=== PATIENT | female | born 1975 | race Caucasian/White ===

== ENCOUNTER → 2019-09-24 | Outpatient (CLI) | payer OTHER ==
[~2019-09-24] MED LIST: ASPI-630 PO; ATOR40TA59 PO; IOHEXOL 350 MG/ML 100 ML VIAL. IV ONE; LISI2.5T PO; METO25TA4 PO
[2019-09-24 08:37] LABS: CALCIUM 8.3 mg/dL (8.5-10.1); CREATININE 0.9 mg/dL (0.6-1.0); GFR 68.3; POTASSIUM 4.2 mmol/L (3.5-5.1)
--- NOTE | 2019-09-24 13:36 | RAD ---
CT ANGIOGRAPHY HEAD AND NECK History:Reason: POSS ANEURYSM, HX OF CORONARY ARTERY DISSECTION / Spl. Instructions: / History: Technique: After bolus of intravenous contrast, volumetric CT data acquisition was acquired of the head and neck. Multiplanar reconstruction images to include MIP and 3-D reconstruction images are submitted. Exposure: One or more of the following individualized dose reduction techniques were utilized for this examination: 1. Automated exposure control 2. Adjustment of the mA and/or kV according to patient size 3. Use of iterative reconstruction technique. Comparison: None Any determination of stenosis is based on NASCET criteria. Head CTA: ICA: No stenosis, occlusion or aneurysm. MCA: No stenosis, occlusion or aneurysm. ROXANNE: No stenosis, occlusion or aneurysm. [employer]ER: No stenosis, occlusion or aneurysm. Basilar artery: No stenosis, occlusion or aneurysm. Distal vertebral arteries: No stenosis, occlusion or aneurysm. Minimal right inferior maxillary sinus mucosal thickening. CT angiogram neck: Aortic arch: Conventional arch anatomy. Common carotid arteries: No stenosis, occlusion or dissection. Internal carotid arteries: No stenosis, occlusion or dissection. External carotid arteries: Patent Vertebral arteries: No stenosis, occlusion or dissection. Imaged lung apices are unremarkable. Soft tissues appear normal. Bones: Multilevel spondylosis most prominent C5-C6. Impression: 1. No arterial stenosis, occlusion or aneurysm within the head or neck. Electronically signed by: Jose D Maya DO (09/24/2019 1:33 PM) [facility]
--- NOTE | 2019-09-24 13:44 | RAD ---
CT ANGIO CHEST ABD PELVIS History: History of coronary artery dissection. Possible aneurysm. Technique: CT angiogram chest, abdomen and pelvis was performed without and with intravenous contrast. Coronal and sagittal reconstructions were performed. 3-D reconstructions were performed. Exposure: One or more of the following individualized dose reduction techniques were utilized for this examination: 1. Automated exposure control 2. Adjustment of the mA and/or kV according to patient size 3. Use of iterative reconstruction technique. Comparison: None Findings: Chest: No evidence of aortic aneurysm or dissection. Left anterior descending artery stent noted. No pathologic lymphadenopathy within the chest. No consolidation or pleural effusion. 4 mm left lower lobe pleural-based nodule (series 9 image 150). Abdomen and pelvis: The liver, adrenal glands, pancreas and gallbladder are unremarkable. No biliary ductal dilatation. Prior splenectomy. Small splenule noted within the left upper abdomen. Normal appearance the kidneys. No hydronephrosis. Decompressed urinary bladder. Mild colonic diverticulosis. Normal appendix. No evidence of bowel obstruction. No pathologic lymphadenopathy. No ascites. No aortic aneurysm or dissection. Patent celiac, superior mesenteric, and inferior mesenteric arteries. Patent renal arteries. Patent common, internal and external iliac arteries. Patent common femoral arteries. Patent proximal deep and superficial femoral arteries. Bones: No pathologic osseous lesions. Impression: 1. No aortic aneurysm or dissection. 2. Small left lower lobe pulmonary nodule. Recommend one-year follow-up if high risk. Electronically signed by: Jose D Maya DO (09/24/2019 1:42 PM) [facility]
== END | disposition home or self-care (01) ==
LOC: CT 07:47
PROVIDERS: ATTEND Internal Medicine Cardiovascular Disease
DX: I25.10 Atherosclerotic heart disease of native coronary artery without angina pectoris (principal); I25.42 Coronary artery dissection; R91.1 Solitary pulmonary nodule; M47.892 Other spondylosis, cervical region
CPT/HCPCS: 36415; 70496; 70498; 71275; 74174; 80048; Q9967

== ENCOUNTER 2019-11-30 11:02 | Observation (INO) | payer OTHER ==
[~2019-11-30] VITALS: Ht 157.5 cm; Wt 89.9 kg
[2019-11-30 11:29] LABS: BASO # 0.1 x10^3/uL (0.0-0.2); BASO % 1 % (0-3); EOS # 0.2 x10^3/uL (0.0-0.7); EOS % 3 % (0-3); HEMATOCRIT 44.9 % (36.0-47.0); LYMPH # 2.7 x10^3/uL (1.0-4.8); LYMPH % 31 % (24-48); MEAN CORPUSCULAR HEMOGLOBIN 30 pg (25-35); MEAN CORPUSCULAR HGB CONC 33 g/dL (31-37); MEAN CORPUSCULAR VOLUME 90 fL (79-100); MONO # 0.9 x10^3/uL (0.0-1.1); MONO % 10 % (0-9); NEUT # 4.9 x10^3uL (1.8-7.7); NEUT % 56 % (31-73); PLATELET COUNT 210 x10^3/uL (140-400); RED BLOOD COUNT 5.02 x10^6/uL (3.50-5.40); WHITE BLOOD COUNT 8.7 x10^3/uL (4.0-11.0)
--- NOTE | 2019-11-30 11:34 | PHYS DOC ---
Past History Past Medical History: High Cholesterol, AR, Other Additional Past Medical Histor: spontaneous coronary artery dissection Past Surgical History: Hysterectomy Additional Past Surgical Histo: stent x1 Alcohol Use: Occasionally General Adult EDM: Chief Complaint: CHEST PAIN HPI: HPI: The history was obtained from the patient. Patient is a 44-year-old female with PMH spontaneous coronary artery dissection who presents with a chief complaint of chest pain. Patient states she has had constant chest pain over the past 4 days. States the pain is a chest heaviness. She states nothing seems to alleviate or exacerbate her symptoms including exertion. She denies any shortness of breath. She does note some associated lightheadedness and nausea without vomiting. She states that she does take lisinopril, metoprolol, and a statin daily for preventative measures. She states that her blood pressure typically runs low and she thought was causing her lightheadedness. She denies any syncope. She denies any back pain. States the pain feels similar to when she had her coronary artery dissection however it is significantly less severe in nature. Denies history of blood clot in legs or lungs. Denies headache. Did take an aspirin prior to arrival. No other complaints Review of Systems: Review of Systems: Constitutional: Denies fever or chills Eyes: Denies change in visual acuity HENT: Denies nasal congestion or sore throat Respiratory: Denies cough or shortness of breath Cardiovascular: Positive for chest pain GI: D positive for nausea : Denies dysuria Musculoskeletal: Denies back pain or joint pain Integument: Denies rash Neurologic: Denies headache, focal weakness or sensory changes Endocrine: Denies polyuria or polydipsia Lymphatic: Denies swollen glands Psychiatric: Denies depression or anxiety Heart Score: Risk Factors: Risk Factors: DM, Current or recent (<one month) smoker, HTN, HLP, family history of CAD, obesity. Risk Scores: Score 0 - 3: 2.5% MACE over next 6 weeks - Discharge Home Score 4 - 6: 20.3% MACE over next 6 weeks - Admit for Clinical Observation Score 7 - 10: 72.7% MACE over next 6 weeks - Early Invasive Strategies Allergies: Allergies: Allergies Coded Allergies Type Severity Reaction Last Updated Verified mannitol Allergy Mild 09/24/19 Yes morphine Allergy Unknown 11/30/19 Yes Physical Exam: PE: Constitutional: Well developed, well nourished, no acute distress, non-toxic appearance. [] HENT: Normocephalic, atraumatic, bilateral external ears normal, oropharynx moist, no oral exudates, nose normal. [] Eyes: PERRLA, EOMI, conjunctiva normal, no discharge. [] Neck: Normal range of motion, no tenderness, supple, no stridor. [] Cardiovascular:Heart rate regular rhythm, no murmur [] Lungs & Thorax: Bilateral breath sounds clear to auscultation [] Abdomen: Bowel sounds normal, soft, no tenderness, no masses, no pulsatile masses. [] Skin: Warm, dry, no erythema, no rash. [] Back: No tenderness, no CVA tenderness. [] Extremities: No tenderness, no cyanosis, no clubbing, ROM intact, no edema. [] Neurologic: Alert and oriented X 3, normal motor function, normal sensory function, no focal deficits noted. [] Psychologic: Affect normal, judgement normal, mood normal. [] Current Patient Data: Labs: Laboratory Tests Test 11/30/19 11:12 White Blood Count 8.7 x10^3/uL (4.0-11.0) Red Blood Count 5.02 x10^6/uL (3.50-5.40) Hemoglobin 15.0 g/dL (12.0-15.5) Hematocrit 44.9 % (36.0-47.0) Mean Corpuscular Volume 90 fL (79-100) Mean Corpuscular Hemoglobin 30 pg (25-35) Mean Corpuscular Hemoglobin Concent 33 g/dL (31-37) Red Cell Distribution Width 14.0 % (11.5-14.5) Platelet Count 210 x10^3/uL (140-400) Neutrophils (%) (Auto) 56 % (31-73) Lymphocytes (%) (Auto) 31 % (24-48) Monocytes (%) (Auto) 10 % (0-9) H Eosinophils (%) (Auto) 3 % (0-3) Basophils (%) (Auto) 1 % (0-3) Neutrophils # (Auto) 4.9 x10^3uL (1.8-7.7) Lymphocytes # (Auto) 2.7 x10^3/uL (1.0-4.8) Monocytes # (Auto) 0.9 x10^3/uL (0.0-1.1) Eosinophils # (Auto) 0.2 x10^3/uL (0.0-0.7) Basophils # (Auto) 0.1 x10^3/uL (0.0-0.2) Vital Signs: Vital Signs Date Time Temp Pulse Resp B/P (MAP) Pulse Ox O2 Delivery O2 Flow Rate FiO2 11/30/19 11:04 63 18 125/67 (86) 98 Room Air EKG: EKG: EKG consistent with normal sinus rhythm. Ventricular rate of 61 bpm. Left axis noted. Flipped T waves noted in lead III. No acute ST segment elevation appreciated. No previous EKG for comparison. Overall abnormal EKG. [] Radiology/Procedures: Radiology/Procedures: [] Course & Med Decision Making: Course & Med Decision Making Pertinent Labs and Imaging studies reviewed. (See chart for details) Patient is a 44-year-old female who presents with chief complaint of chest pain. Extensive chart he was performed. Patient does have a history of spontaneous coronary artery dissection requiring LAD stenting approximately 1 year ago. She even tells her that she went into cardiac arrest temporarily. EKG today shows nonspecific T wave inversions. No acute ischemia. Troponin negative. She states that her symptoms are much better than when she previously presented for the coronary artery dissection. I did discuss the case with Dr. Morrissey. He did feel the patient is appropriate for hospitalization at [facility]. Patient's pain was well controlled. She did take aspirin prior to arrival. Signout given to hospitalist. Otilia Disclaimer: Otilia Disclaimer: This electronic medical record was generated, in whole or in part, using a voice recognition dictation system. Departure Departure: Impression: Primary Impression: Chest pain of uncertain etiology Additional Impressions: Spontaneous dissection of coronary artery Abnormal EKG Disposition: ADMITTED INPATIENT Condition: STABLE Referrals: YAQUELIN TANNER MD (PCP) Justification of Admission: Justification of Admission: Justification of Admission Dx: Yes Angina: Cresendo Worsening of Sym JHOAN PENALOZA DO Nov 30, 2019 11:34
[2019-11-30 11:39] LABS: CALCIUM 8.6 mg/dL (8.5-10.1); CREATININE 0.9 mg/dL (0.6-1.0); GFR 68.3
[2019-11-30 11:41] LABS: PREG TEST PT QUAL NEGATIVE (NEG)
[2019-11-30 11:45] LABS: ALBUMIN 3.5 g/dL (3.4-5.0); DIRECT BILIRUBIN 0.1 mg/dL (0.0-0.2); TOTAL BILIRUBIN 0.5 mg/dL (0.2-1.0); TOTAL PROTEIN 7.6 g/dL (6.4-8.2)
[2019-11-30] MEDS ORDERED: NITROGLYCERIN SUBLINGUAL 0.4 MG BOTTLE OF 25. SL PRN (11:45)
--- NOTE | 2019-11-30 11:46 | RAD ---
Single view chest dated 11/30/2019: No comparison available. Clinical Indication: Chest pain. Findings: Single upright portable exam of the chest was performed. Heart size and mediastinal contours are within normal limits given technique. The lungs are clear without evidence of focal consolidation. Vascular interstitium is within normal limits. Impression:: Negative portable chest. Electronically signed by: Chaz Platt MD (11/30/2019 11:44 AM) [id number]
[2019-11-30] MEDS ORDERED: IV NORMAL SALINE 1,000ML 1,000 ML IV ONE (12:15)
[2019-11-30] MEDS ORDERED: HYDROmorphone PF 1 MG/ML DISP.SYRIN IV ONE (13:20)
[2019-11-30] MEDS ORDERED: ONDANSETRON PF 4 MG/2 ML VIAL. IVP PRN ×2 (13:30→15:45)
[2019-11-30] MEDS ORDERED: HYDROmorphone PF 1 MG/ML DISP.SYRIN IV PRN (13:30)
[2019-11-30] MEDS ORDERED: MAG HYDROX/AL HYDROX/SIMETH 30 ML ORAL.SUSP PO ONE (14:45)
[2019-11-30] MEDS ORDERED: FAMOTIDINE 20 MG TABLET PO ONE (14:45)
[2019-11-30] MEDS ORDERED: ONDANSETRON ODT 4 MG TAB.RAPDIS PO ONE (14:45)
--- NOTE | 2019-11-30 15:00 | NUR ---
The patient, RUBY BRICEÑO, 44 y/o, F admitted by CRISSY CUNNINGHAM MD, was given written information regarding hospital policies, unit procedures and contact persons, medications verified with patient. Pt verbalized understanding of all information given. Pt wheeled to room [facility] in [facility] by EMS and ED staff. Valuables were checked and kept in pt room. Pt presented to ED with complaints of CP and vertigo since . CP is constant and rated a 4/10. pt received 1 nitro, 1L NS, and dilaudid in ER before admission. Pt became nauseous and was given zofran before arrival to this unit. pt states the nitro and dilaudid did not help with her CP but only made her nauseous. Will continue to monitor.
[2019-11-30 15:27] VITALS: BP 105/68
[2019-11-30] MEDS ORDERED: ACETAMINOPHEN 325 MG TABLET PO PRN (15:45)
[2019-11-30] MEDS ORDERED: ASPI-630 PO (16:11)
[2019-11-30] MEDS ORDERED: LISI2.5T PO (16:11)
[2019-11-30] MEDS ORDERED: ATOR40TA59 PO (16:11)
[2019-11-30] MEDS ORDERED: METO25TA4 PO (16:11)
--- NOTE | 2019-11-30 16:15 | NUR ---
Pt still complaining of vertigo/dizziness while lying supine in bed and watching TV. Contacted Dr. Comer for medication. Ordered Meclizine 25mg PO Q8hrs.
--- NOTE | 2019-11-30 16:27 | NUR ---
Called in consult for Cardiology with Dr. Morrissey.
[2019-11-30] MEDS: MECLIZINE 12.5 MG TABLET. PO SCH ×2 (16:48→22:56)
[2019-11-30 19:00] VITALS: BP 104/66
[2019-11-30] MEDS: METOPROLOL TART IMMED RELEASE 25 MG TABLET PO SCH (21:50)
[2019-11-30 23:03] VITALS: BP 91/54
[2019-12-01] MEDS: MECLIZINE 12.5 MG TABLET. PO SCH (05:45)
[2019-12-01 05:59] LABS: BASO # 0.2 x10^3/uL (0.0-0.2); BASO % 2 % (0-3); EOS # 0.2 x10^3/uL (0.0-0.7); EOS % 2 % (0-3); HEMATOCRIT 40.6 % (36.0-47.0); HEMOGLOBIN 13.6 g/dL (12.0-15.5); LYMPH # 3.2 x10^3/uL (1.0-4.8); LYMPH % 30 % (24-48); MEAN CORPUSCULAR HEMOGLOBIN 30 pg (25-35); MEAN CORPUSCULAR HGB CONC 34 g/dL (31-37); MEAN CORPUSCULAR VOLUME 89 fL (79-100); MONO # 1.1 x10^3/uL (0.0-1.1); MONO % 11 % (0-9); NEUT # 5.9 x10^3uL (1.8-7.7); NEUT % 56 % (31-73); PLATELET COUNT 212 x10^3/uL (140-400); RED BLOOD COUNT 4.58 x10^6/uL (3.50-5.40); RED CELL DISTRIBUTION WIDTH 14.2 % (11.5-14.5); WHITE BLOOD COUNT 10.7 x10^3/uL (4.0-11.0)
[2019-12-01 06:07] LABS: GFR 60.5; POTASSIUM 4.1 mmol/L (3.5-5.1)
[2019-12-01 06:22] VITALS: BP 100/66
--- NOTE | 2019-12-01 07:42 | PDOC2 ---
MELISSA MARROQUIN LAST PUTTER AWAY 12/01/19 0742: CARDIAC CONSULT DATE OF CONSULT DOS: DATE: 12/01/19 TIME: 07:40 REASON FOR CONSULT Reason for Consult CP with h/o spontaneous coronary artery dissection REFERRING PHYSICIAN Referring Physician Dr. Be SOURCE Source: Chart review, Patient HPI History of Present Illness This is a 44 yo female, with h/o spontaneous coronary artery dissection, who presented secondary to chest pain and dizziness. Reports dizziness began evening. That following day, developed itching, stretching pain in her central chest. No associated diaphoresis, shortness of breath, or palpitations. Dizziness persisted into the weekend. Chest pain, was initially intermittent, but then became more constant so she came to the ED for further evaluation and treatment. Patient reports pain to be different from what she previously experienced with SCAD. Follows with Dr. Lal in clinic. Has outpatient echo scheduled in February. PAST MEDICAL HISTORY Past Medical History Cardiovascular: CAD (coronary dissection), CHF (ICM), MT, Other (Vfib arrest) Pulmonary: No pertinent hx CENTRAL NERVOUS SYSTEM: Other (No pertinent history) GI: No pertinent hx Heme/Onc: No pertinent hx Hepatobiliary: No pertinent hx Psych: No pertinent hx Musculoskeletal: Other (None) Infectious disease: No pertinent hx ENT: No pertinent hx Renal/: No pertinent hx Endocrine: No pertinent hx Dermatology: No pertinent hx PAST SURGICAL HISTORY Past Surgical History Hysterectomy, Other (PCI) FAMILY HISTORY Family History: Coronary Artery Disease (father ) SOCIAL HISTORY Social History Smoke: No ALCOHOL: none Drugs: None Lives: with Family CURRENT MEDICATIONS Current Medications Current Medications Nitroglycerin (Nitrostat) 0.4 mg PRN Q5MIN PRN SL CHEST PAIN Last administered on 11/30/19at 12:09; Start 11/30/19 at 11:45 Sodium Chloride 1,000 ml @ 1,000 mls/hr 1X ONCE IV Last administered on 11/30/19at 12:12; Start 11/30/19 at 12:15; Stop 11/30/19 at 13:14; Status DC Hydromorphone HCl (Dilaudid) 0.5 mg 1X ONCE IV Last administered on 11/30/19at 14:04; Start 11/30/19 at 13:20; Stop 11/30/19 at 13:21; Status DC Ondansetron HCl (Zofran) 4 mg PRN Q4HRS PRN IVP NAUSEA/VOMITING Last administered on 11/30/19at 14:44; Start 11/30/19 at 13:30; Stop 12/01/19 at 13:29 Hydromorphone HCl (Dilaudid) 0.5 mg PRN Q2HR PRN IV PAIN; Start 11/30/19 at 13:30; Stop 12/01/19 at 13:29 Ondansetron HCl (Zofran Odt) 4 mg 1X ONCE PO Last administered on 11/30/19at 16:48; Start 11/30/19 at 14:45; Stop 11/30/19 at 14:47; Status DC Famotidine (Pepcid) 20 mg 1X ONCE PO Last administered on 11/30/19at 16:48; Start 11/30/19 at 14:45; Stop 11/30/19 at 14:47; Status DC Al Hydroxide/Mg Hydroxide (Mylanta Plus Xs) 30 ml 1X ONCE PO Last administered on 11/30/19at 16:48; Start 11/30/19 at 14:45; Stop 11/30/19 at 14:47; Status DC Acetaminophen (Tylenol) 650 mg PRN Q6HRS PRN PO Headaches, Temp > 101.5F Last administered on 12/01/19at 05:50; Start 11/30/19 at 15:45 Ondansetron HCl (Zofran) 4 mg PRN Q8HRS PRN IVP NAUSEA/VOMITING; Start 11/30/19 at 15:45 Meclizine HCl (Antivert) 25 mg Q8HRS PO Last administered on 12/01/19at 05:45; Start 11/30/19 at 16:45 Aspirin (Aspirin Chewable) 81 mg DAILYWBKFT PO ; Start 12/01/19 at 08:00 Lisinopril (Prinivil) 2.5 mg DAILY PO ; Start 12/01/19 at 09:00 Metoprolol Tartrate (Lopressor) 25 mg BID PO Last administered on 11/30/19at 21:50; Start 11/30/19 at 21:30 Atorvastatin Calcium (Lipitor) 20 mg QODAY PO ; Start 12/02/19 at 09:00 Active Scripts Active Reported Metoprolol Tartrate 25 Mg Tablet 1 Tab PO BID Lisinopril 2.5 Mg Tablet 1 Tab PO DAILY Atorvastatin Calcium 40 Mg Tablet 0.5 Tab PO QODAY Aspirin 81 Mg Tab.chew 81 Mg PO DAILY ALLERGIES Allergies: Coded Allergies: mannitol (Verified Allergy, Mild, 09/24/19) morphine (Verified Allergy, Unknown, 11/30/19) Pt has received dilaudid w/o issue. ROS Review of Systems 14 point ROS conducted with pertinent positives noted above in HPI PHYSICAL EXAM General: Alert, Oriented X3, Cooperative, No acute distress HEENT: Mucous membr. moist/pink Lungs: Clear to auscultation, Other (slight central chest tenderness upon p alpitation) Heart: Regular rate (SR/SB), Normal S1, Normal S2 Abdomen: Soft Extremities: No edema, Normal pulses Neuro: Normal speech, Normal tone, Sensation intact Psych/Mental Status: Mental status NL, Mood NL MUSCULOSKELETAL: No deformity VITALS Vital Signs Vital Signs Date Time Temp Pulse Resp B/P (MAP) Pulse Ox O2 Delivery O2 Flow Rate FiO2 12/01/19 06:22 98.1 64 18 100/66 (77) 95 Room Air LABS LABS Laboratory Tests Test 11/30/19 11:12 11/30/19 18:55 12/01/19 05:50 White Blood Count 8.7 x10^3/uL (4.0-11.0) 10.7 x10^3/uL (4.0-11.0) Red Blood Count 5.02 x10^6/uL (3.50-5.40) 4.58 x10^6/uL (3.50-5.40) Hemoglobin 15.0 g/dL (12.0-15.5) 13.6 g/dL (12.0-15.5) Hematocrit 44.9 % (36.0-47.0) 40.6 % (36.0-47.0) Mean Corpuscular Volume 90 fL (79-100) 89 fL (79-100) Mean Corpuscular Hemoglobin 30 pg (25-35) 30 pg (25-35) Mean Corpuscular Hemoglobin Concent 33 g/dL (31-37) 34 g/dL (31-37) Red Cell Distribution Width 14.0 % (11.5-14.5) 14.2 % (11.5-14.5) Platelet Count 210 x10^3/uL (140-400) 212 x10^3/uL (140-400) Neutrophils (%) (Auto) 56 % (31-73) 56 % (31-73) Lymphocytes (%) (Auto) 31 % (24-48) 30 % (24-48) Monocytes (%) (Auto) 10 % (0-9) 11 % (0-9) Eosinophils (%) (Auto) 3 % (0-3) 2 % (0-3) Basophils (%) (Auto) 1 % (0-3) 2 % (0-3) Neutrophils # (Auto) 4.9 x10^3uL (1.8-7.7) 5.9 x10^3uL (1.8-7.7) Lymphocytes # (Auto) 2.7 x10^3/uL (1.0-4.8) 3.2 x10^3/uL (1.0-4.8) Monocytes # (Auto) 0.9 x10^3/uL (0.0-1.1) 1.1 x10^3/uL (0.0-1.1) Eosinophils # (Auto) 0.2 x10^3/uL (0.0-0.7) 0.2 x10^3/uL (0.0-0.7) Basophils # (Auto) 0.1 x10^3/uL (0.0-0.2) 0.2 x10^3/uL (0.0-0.2) Sodium Level 138 mmol/L (136-145) 139 mmol/L (136-145) Potassium Level 4.0 mmol/L (3.5-5.1) 4.1 mmol/L (3.5-5.1) Chloride Level 103 mmol/L (98-107) 105 mmol/L (98-107) Carbon Dioxide Level 26 mmol/L (21-32) 26 mmol/L (21-32) Anion Gap 9 (6-14) 8 (6-14) Blood Urea Nitrogen 13 mg/dL (7-20) 15 mg/dL (7-20) Creatinine 0.9 mg/dL (0.6-1.0) 1.0 mg/dL (0.6-1.0) Estimated GFR (Cockcroft-Gault) 68.3 60.5 Glucose Level 118 mg/dL (70-99) 87 mg/dL (70-99) Calcium Level 8.6 mg/dL (8.5-10.1) 8.0 mg/dL (8.5-10.1) Total Bilirubin 0.5 mg/dL (0.2-1.0) Direct Bilirubin 0.1 mg/dL (0.0-0.2) Aspartate Amino Transf (AST/SGOT) 14 U/L (15-37) Alanine Aminotransferase (ALT/SGPT) 18 U/L (14-59) Alkaline Phosphatase 41 U/L (46-116) Troponin I Quantitative < 0.017 ng/mL (0-0.055) < 0.017 ng/mL (0-0.055) < 0.017 ng/mL (0-0.055) Total Protein 7.6 g/dL (6.4-8.2) Albumin 3.5 g/dL (3.4-5.0) Lipase 120 U/L (73-393) Serum Test, Qualitative Negative (NEG) IMAGES IMAGES MUGA scan Impression: Left ventricular ejection fraction of 64.2%. Electronically signed by: Umair Dupree MD (10/23/2018 8:20 AM) [id number] DATE: 10/23/18 0820 ECHOCARDIOGRAM Echocardiogram <Conclusion> The ejection fraction is moderate to severely impaired. The Ejection Fraction is 35%. Basal segment wall motion is within normal limits. The mid to distal LV and apex are severely hypokinetic. No left ventricular thrombus is noted. Limited study only. DATE: 08/09/18 1802 STRESS TEST Stress Test Conclusion 1. Regadenoson cardioisotope stress test showed small apical infarct without any ischemia. 2. Normal left ventricular systolic function with ejection fraction calculated at 76%. 3. Low risk for cardiac events. DATE: 11/22/18 1413 HEART CATH Heart Cath FINDINGS: HEMODYNAMICS: LVEDP 5 mm Hg No gradient on LV to aortic pullback. AO: 128/78 LEFT VENTRICULOGRAM:Deferred due to known EF CORONARY ANGIOGRAPHY: LM is a large caliber vessel with normal angiographic appearance. LAD is a large caliber vessel with a patent mid stent. No residual dissection is noted. D1/D2 are moderate caliber vessels with normal angiographic apeparance. LCx is a moderate caliber non-dominant vessel with normal angiographic appearance. OM1 is a moderate caliber vessel with normal angiographic appearance. RCA is a large caliber dominant vessel with normal angiographic appearance. RPDA and RPL are moderate caliber vessels with normal angiographic appearance. Conclusion 1. Normal LVEDP. 2. One vessel spontaneous coronary artery dissection, well healed after recent PCI to the mid LAD. Recommendations 1. Continue current medical therapy including asa, ticagrelor, low dose lisinopril. 2. Send home with prn NTG. 3. Ok to DC later today. DATE: 08/27/18 1154 ASSESSMENT/PLAN Assessment/Plan 1. Chest pain, atypical; AMI ruled out. Possibly MSK in origin 2. CAD: hx of coronary artery dissection to LAD with stent placement. Recent CTA chest/abdomen/pelvis/neck/head without any evidence of aneurysm or dissection 3. H/o NSVT; Maintaining SR/SB. lowest 49. on Metoprolol 4. H/o ICM: LVEF previously 35%. MPI 12/09 with LVEF recovery. 5. HTN: BP at low end. on low-dose ACEi Recommendations Continue secondary prevention including ASA, statin, metoprolol, and low-dose lisinopril Outpatient echocardiogram as scheduled Okay to discharge from a CV standpoint Follow up in out office with Dr. Lal as scheduled. MIRZA LAL MD 12/02/19 1002: CARDIAC CONSULT ASSESSMENT/PLAN Assessment/Plan Late entry for 12/01/2019 Pt. seen and examined. Agree with above CLOSING SPECIALIST note. Will check COVID testing. Thanks MELISSA MARROQUIN APRN Dec 01, 2019 07:42 MIRZA LAL MD Dec 02, 2019 10:02
[2019-12-01] MEDS: METOPROLOL TART IMMED RELEASE 25 MG TABLET PO SCH (07:55)
[2019-12-01] MEDS ORDERED: ASPIRIN CHEWABLE 81 MG TABLET. PO SCH (08:00)
--- NOTE | 2019-12-01 08:41 | EKG ---
[address] [id number] Test Date: 2019-11-30 Test Time: 11:15:44 Pat Name: RUBY BRICEÑO Department: Room: 119 A Gender: F Claims Service Adjustor: : 1975 Requested By: JHOAN PENALOZA Order Number: [id number] Reading MD: Measurements Intervals [place] Rate: 61 P: 38 NE: 176 QRS: -4 QRSD: 84 T: 8 QT: 434 QTc: 443 Interpretive Statements SINUS RHYTHM LEFT ATRIAL ABNORMALITY LEFTWARD AXIS QRS(T) CONTOUR ABNORMALITY CONSIDER ANTEROSEPTAL MYOCARDIAL DAMAGE ABNORMAL ECG RI6.02 No previous ECG available for comparison
[2019-12-01] MEDS ORDERED: LISINOPRIL 2.5 MG TABLET PO SCH (09:00)
--- NOTE | 2019-12-01 09:18 | HP ---
ADMIT DATE: 11/30/2019 ATTENDING PHYSICIAN: Dr. Cunningham. CHIEF COMPLAINT: Chest pain. HISTORY OF PRESENT ILLNESS: The patient is a delightful 44-year-old female originally from [place]. She is here in [place] because her is with the and he is a guest instructor at the [employer] in [employer] She is and has 3 children, ages 17, 14 and 11. 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 She had to be resuscitated with an electroshock therapy, she went for urgent catheterization and she at that time a stent placed. She did not have any open heart surgery. She has been doing well. She is taking low-dose beta alexandre and lisinopril along with an aspirin a day. The chest pain is more of a pressure, pulling at her chest wall. She did some recent biking with her son and certainly may have caused the chest wall muscles to be strained. No falls, no lightheadedness. She has run usually low blood pressure. No fevers. No COVID symptoms. She was admitted then for further evaluation and serial cardiac enzymes and Cardiology consultation. PAST MEDICAL HISTORY: Significant for the spontaneous coronary artery dissection resulting in a stent, abdominal hysterectomy. CURRENT MEDICATIONS: Includes 2.5 mg of lisinopril along with 25 mg of metoprolol and aspirin daily. SOCIAL HISTORY: She is a nonsmoker, nondrinker. ALLERGIES: SHE HAS ALLERGIES TO MANNITOL AND MORPHINE, EXACT REACTION IS UNCLEAR. FAMILY HISTORY: Mom is healthy at age 64. Father is alive at age 69 with diabetes. REVIEW OF SYSTEMS: Significant for the recent bike ride that may have contributed to her chest wall strain. No fevers, chills, cough, congestion or COVID symptoms. All other systems reviewed and turned to be negative. PHYSICAL EXAMINATION: GENERAL: When I saw her, this is a pleasant young female. INITIAL VITAL SIGNS: Showed a blood pressure of 100/66, pulse is 64 and regular, temperature 98.1 degrees Fahrenheit, and her oxygen saturations were 95% on room air. HEENT: Head is without trauma. Pupils are reactive. Sclerae nonicteric. Oropharynx is clear. NECK: Supple, no bruits identified. LUNGS: Otherwise clear. CARDIOVASCULAR: Showed regular heart tones. No gallops, no murmurs. Peripheral pulses are palpable and full. ABDOMEN: Soft, scaphoid, nontender, no organomegaly. Bowel sounds were hypoactive. EXTREMITIES: Showed no cyanosis or edema. NEUROLOGIC: Focally intact. Speech is fluent. Luggage Attendant intact. SKIN: Warm and dry. PERTINENT LABORATORY STUDIES: EKG was nondiagnostic. Initial hemoglobin was 15.0 g/dL with a white count of 8700. The first set of cardiac enzymes were negative for coronary ischemia. Electrolytes, BUN and creatinine, liver panel all within normal range. ASSESSMENT: 1. A 44-year-old female with known coronary artery disease history, has atypical chest pain at rest. I believe this is more musculoskeletal from the recent bike ride. The strain on her arms have put a strain on her muscles associated with her sternum. 2. Known history of coronary artery dissection with previous stents. 3. Mild lightheadedness, resolved. PLAN: 1. Observation status. 2. Serial cardiac enzymes. 3. Cardiology consultation on this admission. CRISSY CUNNINGHAM MD DR: YARELIS/reema JOB#: [id number] / [id number]
[2019-12-01 11:01] VITALS: BP 105/70
[2019-12-01 14:18] LABS: THYROID STIM HORMONE (TSH) 2.4 uIU/mL (0.358-3.740)
--- NOTE | 2019-12-01 14:38 | NUR ---
Discharge Note: RUBY BRICEÑO [address] [place] [address] Discharge instructions and discharge home medications reviewed with Patient and a copy given. All belongings given to pt at discharge. All questions have been answered and understanding verbalized. The following instructions and handouts were given: Dizziness Discontinued peripheral IV Patient discharged to Home or Self Care. This RN ambulated with pt to front entrance to spouse's vehicle. pt ambulated well and was feeling able to.
--- NOTE | 2019-12-01 15:33 | DS ---
DATE OF DISCHARGE: 12/01/2019 ATTENDING PHYSICIAN: Dr. Cunningham. FINAL DISCHARGE DIAGNOSES: 1. Atypical chest pain, coronary ischemia ruled out. 2. Known history of coronary artery dissection in 07/2018, previous stents. 3. Mild lightheadedness with some vertigo symptoms. 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. In 07/2018, she had spontaneous dissection of coronary artery resulting in resuscitation efforts, cardiac catheterization and placement of a stent. Since then, she has done well. 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 She developed new onset of chest pain nonexertional. She has been riding a bike uphill and maybe the strain on her arms had radiated to her anterior chest wall. She is not short of breath. She has no palpitations. She was admitted for further treatment, serial enzymes and Cardiology evaluation. PHYSICAL EXAMINATION: Please see the dictated note. PERTINENT LABORATORY AND X-RAY STUDIES: Three sets of cardiac enzymes were negative for coronary ischemia. Hemoglobin was 15.0 grams, white count 8700 with a normal differential. Electrolytes within normal range. Troponin level was unremarkable for coronary ischemia. Transaminases and liver functions were normal. COURSE IN THE HOSPITAL: The patient was admitted. She did not have any further chest pains. Diet was advanced. Serial cardiac enzymes were negative for coronary ischemia and/or myocardial necrosis. Cardiology services with Yen[facility] and Dr. Lal saw the patient in consultation. Their recommendation is on the chart. He recommended COVID swab just in case that she was exposed. On the second hospital day, the patient was doing well. She had no further symptoms that brought her in. She was discharged home with no changes on her meds. She will continue her aspirin 81 mg daily, Lipitor 40 mg daily, lisinopril 2.5 mg daily and she was seen in consultation. She had no further chest pain. She was a little dizzy. She requested some p.r.n. meclizine. Please refer to Dr. Lal's recommendation. The patient was then discharged home on the second hospital day in stable condition with no changes on meds. She will continue her aspirin 81 mg daily, atorvastatin 40 mg daily, lisinopril 2.5 mg daily, metoprolol 25 mg b.i.d. Her prognosis is fair. The patient was then discharged from our hospital in stable condition with explicit instructions and followup care. CRISSY CUNNINGHAM MD DR: YARELIS/reema JOB#: [id number] / [id number]
[2019-12-02] MEDS ORDERED: ATORVASTATIN CALCIUM 20 MG TABLET PO SCH (09:00)
== END 2019-12-01 14:15 | disposition home or self-care (01) ==
LOC: ER 11:02 → 1 SOUTH 13:45
PROVIDERS: ADMIT Hospitalist; ATTEND Hospitalist
DX: Z03.818 Encounter for observation for suspected exposure to other biological agents ruled out (principal); R07.89 Other chest pain; I25.10 Atherosclerotic heart disease of native coronary artery without angina pectoris; R42 Dizziness and giddiness; I46.9 Cardiac arrest, cause unspecified; I50.9 Heart failure, unspecified; E78.00 Pure hypercholesterolemia, unspecified; I25.2 Old myocardial infarction; Z95.5 Presence of coronary angioplasty implant and graft; Z79.899 Other long term (current) drug therapy; Z90.710 Acquired absence of both cervix and uterus; Z79.82 Long term (current) use of aspirin
CPT/HCPCS: 36415; 71045; 80048; 80061; 80076; 83690; 84443; 84484; 84703; 85025; 93005; 96361; 96374; 96375; 99285; G0378; J1170; J2405; J7030; J8597; Q0162; U0003; G0379

== ENCOUNTER → 2020-01-16 | Outpatient (CLI) | payer OTHER ==
[~2020-01-16] MED LIST changes: -IOHEXOL 350 MG/ML 100 ML VIAL. IV ONE
== END | disposition home or self-care (01) ==
LOC: LAB 08:06
PROVIDERS: ATTEND Internal Medicine Cardiovascular Disease
DX: I25.5 Ischemic cardiomyopathy (principal)
CPT/HCPCS: 80061

== ENCOUNTER → 2020-02-24 | Outpatient (CLI) | payer OTHER ==
--- NOTE | 2020-02-24 15:56 | CARD ---
MR#: [id number] Date of Study: 02/24/2020 Ordering Physician: MIRZA GARCIA, Referring Physician: MIRZA GARCIA, Tech: Michelle Wynne APPROVED REPORT EXAM: Two-dimensional and M-mode echocardiogram with Doppler and color Doppler. Other Information HR: 54bpm INDICATION Cardiac Disease: CAD Cardiomyopathy 2D DIMENSIONS RVDd3.4 (2.9-3.5cm)Left Atrium(2D)3.4 (1.6-4.0cm) IVSd0.7 (0.7-1.1cm)Aortic Root(2D)2.9 (2.0-3.7cm) LVDd5.1 (3.9-5.9cm)LVOT Diameter2.0 (1.8-2.4cm) PWd0.9 (0.7-1.1cm)LVDs3.3 (2.5-4.0cm) FS (%) 35.9 %SV79.8 ml Aortic Valve AoV Peak Devin.136.0cm/sAoV VTI32.9cm AO Peak GR.7.4mmHgLVOT Peak Devin.100.1cm/s LVOT VTI 21.17cmAO Mean GR.5mmHg SHIELA (VMAX)2.23qq3WYI (VTI)2.00cm2 Mitral Valve MV E Zynxwmoq23.4cm/sMV DECEL ERGA891ps MV A Ukzjocue96.2cm/sE/A Ratio1.3 Pulmonary Valve PV Peak Oiyttbsk42.9cm/sPV Peak Grad.4mmHg Tricuspid Valve TR P. Fxwzwslk730ar/sRAP ZOISOFZW4fpKu TR Peak Gr.02pdNeEHIJ05gsUv Pulmonary Vein S1 Yngrjqyg91.3cm/sD2 Qpmxuhme01.9cm/s LEFT VENTRICLE The left ventricle is normal size. There is normal left ventricular wall thickness. The left ventricu lar systolic function is low normal. The Ejection Fraction is 50%. There is normal LV segmental wall motion. The left ventricular diastolic function and filling is normal for age. RIGHT VENTRICLE The right ventricle is normal size. There is normal right ventricular wall thickness. The right ventr icular systolic function is normal. ATRIA The left atrium size is normal. The right atrium size is normal. The interatrial septum is intact wit h no evidence for an atrial septal defect or patent foramen ovale as noted on 2-D or Doppler imaging. AORTIC VALVE The aortic valve is normal in structure and function. Doppler and Color Flow revealed no significant aortic regurgitation. There is no significant aortic valvular stenosis. Calculated aortic valve area is 2.2 cm2 with maximum pressure gradient of 8 mmHg and mean pressure gradient of 5 mmHg. MITRAL VALVE The mitral valve is normal in structure and function. There is no evidence of mitral valve prolapse. There is no mitral valve stenosis. Doppler and Color-flow revealed trace mitral regurgitation. TRICUSPID VALVE The tricuspid valve is normal in structure and function. Doppler and Color Flow revealed trace tricus pid regurgitation with an estimated PAP of 30 mmHg. There is no tricuspid valve stenosis. PULMONIC VALVE The pulmonic valve is not well visualized. Doppler and Color Flow revealed trace pulmonic valvular re gurgitation. GREAT VESSELS The aortic root is normal in size. The ascending aorta is normal in size. The IVC is normal in size a nd collapses >50% with inspiration. PERICARDIAL EFFUSION There is no evidence of significant pericardial effusion. Critical Notification Critical Value: No <Conclusion> The left ventricle is normal size. The left ventricular systolic function is low normal. The Ejection Fraction is 50%. Doppler and Color Flow revealed no significant aortic regurgitation. There is no significant aortic valvular stenosis. Calculated aortic valve area is 2.2 cm2 with maximum pressure gradient of 8 mmHg and mean pressure gr adient of 5 mmHg. Doppler and Color-flow revealed trace mitral regurgitation. Doppler and Color Flow revealed trace tricuspid regurgitation with an estimated PAP of 30 mmHg. Signed by : Richard Tabor MD Electronically Approved : 02/24/2020 15:56:14
== END ==
LOC: ECHO 07:57 → EDUNIT# 08:00
PROVIDERS: ATTEND Internal Medicine Cardiovascular Disease
DX: I25.5 Ischemic cardiomyopathy (principal); I25.10 Atherosclerotic heart disease of native coronary artery without angina pectoris
CPT/HCPCS: 93306